=== PATIENT | male | born 1950 | race Caucasian/White ===

== ENCOUNTER 2018-09-05 10:44 | Day surgery (SDC) | payer MEDICARE, OTHER ==
[2018-09-04 13:25] VITALS: BMI 17.7
[2018-09-05 13:04] LABS: Hemoglobin 12.2 g/dL (14.0-18.0); Mean Corpuscular HGB CONC 30.7 g/dL (32.0-36.0); Mean Corpuscular Hemoglobin 25.3 pg (27.0-31.0); Mean Corpuscular Volume 82.6 fL (78.0-98.0); Mean Platelet Volume 11.2 fL (7.4-10.4); Platelet Count 138 thou/uL (130-400); RBC Distribution Width 15.8 % (11.5-14.5); Red Blood Cell (RBC) Count 4.81 mill/uL (4.70-6.10); White Blood Cell (WBC) Count 4.5 thou/uL (4.8-10.8)
[2018-09-05 13:10] LABS: Anion Gap 12 mmol/L (10-20); BUN (Urea Nitrogen) 13 mg/dL (8.4-25.7); Calc. Creatinine Clearance 66 mL/min (70-130); Calcium 9.6 mg/dL (7.8-10.44); Carbon Dioxide 26 mmol/L (23-31); Chloride 104 mmol/L (98-107); Estimated GFR-MDRD Greater than 90; Glucose 86 mg/dL (80-115); Potassium 4.2 mmol/L (3.5-5.1); Sodium 138 mmol/L (136-145)
[2018-09-05] MEDS ORDERED: EPINEPHrine 1 MG/ML AMP ONE (13:39)
[2018-09-05 13:57] LABS: Anisocytosis SLIGHT = 6-15 cells (100X) (0-5/hpf); Eosinophils 1 % (0-10); Hypochromia SLIGHT = 6-15 cells (100X) (0-5/hpf); Lymphocytes 90 % (21-51); MDiff Complete? YES; Monocytes 5 % (0-10); Neutrophil 1 % (42-75); Platelet Morphology Comment Appears Adequate; Reactive Lymphocytes 3 % (0-10)
[2018-09-05] MEDS ORDERED: PROPOFOL 40 ML ONE (14:11)
[2018-09-05] MEDS ORDERED: Fentanyl 100 MCG/2 ML VIAL ONE (14:11)
[2018-09-05] MEDS ORDERED: Lidocaine 1% PF 5 ML VIAL ONE (15:56)
[2018-09-05] MEDS ORDERED: Succinylcholine Chloride 20 MG/ML 10 ml SYRINGE FS ONE (15:56)
[2018-09-05] MEDS ORDERED: PROPOFOL 200 MG/20 ML VIAL ONE (15:56)
--- NOTE | 2018-09-05 17:10 | EKG ---
Test Reason : PREOP Blood Pressure : / mmHG Vent. Rate : 067 BPM Atrial Rate : 067 BPM P-R Int : 154 ms QRS Dur : 078 ms QT Int : 416 ms P-R-T Axes : 078 -49 078 degrees QTc Int : 439 ms Normal sinus rhythm Left anterior fascicular block Anteroseptal infarct , age undetermined Abnormal ECG No previous ECGs available Confirmed by LOVE DELVALLE, DR. Osman ([id number]) on 09/05/2018 5:10:42 PM Referred By: HARRISON Confirmed By:DR. Jacqui ALEMAN MD
--- NOTE | 2018-09-06 11:15 | OP ---
DATE OF PROCEDURE: 09/05/2018 PREOPERATIVE DIAGNOSIS: Bilateral vocal cord lesion and hoarseness. 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 PROCEDURE PERFORMED: Microsuspension laryngoscopy with bilateral vocal cord biopsy. DESCRIPTION OF PROCEDURE: After consent was obtained, patient was identified and brought to the operating room and placed on operating table in supine position. General anesthesia was obtained with . The patient was positioned for surgery. The larynx was evaluated under microscopic visualization and found to have bilateral anterior vocal cord verrucous lesions. Each was biopsied and sent for histologic evaluation with micro cups. Topical lidocaine was then applied following the application of adrenaline. The patient was then awakened, extubated, and taken to recovery room in stable condition prior to discharge home. Job ID: [id number]
== END 2018-09-05 16:45 | disposition home or self-care (01) ==
LOC: SDC 10:44
PROVIDERS: ATTEND Specialist
PROC: 0CBV8ZX Excision of Left Vocal Cord, Via Natural or Artificial Opening Endoscopic, Diagnostic (ICD-10-PCS; principal; 2018-09-05)
PROC: 0CBT8ZX Excision of Right Vocal Cord, Via Natural or Artificial Opening Endoscopic, Diagnostic (ICD-10-PCS; 2018-09-05)
DX: C32.0 Malignant neoplasm of glottis (principal); F17.210 Nicotine dependence, cigarettes, uncomplicated; E78.00 Pure hypercholesterolemia, unspecified; I11.9 Hypertensive heart disease without heart failure; Z86.73 Personal history of transient ischemic attack (TIA), and cerebral infarction without residual deficits; Z79.02 Long term (current) use of antithrombotics/antiplatelets; Z79.82 Long term (current) use of aspirin; Z79.899 Other long term (current) drug therapy; Z95.1 Presence of aortocoronary bypass graft; Z95.5 Presence of coronary angioplasty implant and graft
CPT/HCPCS: 80048; 85025; 88305; 93005; 93010; J0171; J2001; J2704; J3010